=== PATIENT | male | born 1955 | race Caucasian/White ===

== ENCOUNTER 2019-07-18 14:28 | Emergency (ER) | payer OTHER ==
--- OUTSIDE RECORDS SUMMARY | 2019-07-18 14:30 | XMS REPORT ---
:1955 [facility] [address] [place] [id number] Care Team Providers Name Role Phone ALFRED AVELAR Unavailable Unavailable Problems This patient has no known problems. Allergies, Adverse Reactions, Alerts This patient has no known allergies or adverse reactions. Medications This patient has no known medications. Results Test Description Test Time Test Comments Text Results Atomic Results Result Comments URINALYSIS W/ MICROSCOPIC 2016-10-01 10:41:00 Test Item Value Reference Range Comments COLOR (BEAKER) (test ryjv=119) Yellow CLARITY (BEAKER) (test lgnl=452) Clear SPECIFIC GRAVITY UA (BEAKER) (test zpik=529) 1.018 1.001-1.035 PH UA (BEAKER) (test dyib=582) 5.5 5.0-8.0 PROTEIN UA (BEAKER) (test fwhl=307) 20 mg/dL Negative GLUCOSE UA (BEAKER) (test vcyp=838) 500 mg/dL Negative KETONES UA (BEAKER) (test qifo=402) Negative Negative BILIRUBIN UA (BEAKER) (test uaiq=049) Negative Negative BLOOD UA (BEAKER) (test fwyl=219) Negative Negative NITRITE UA (BEAKER) (test ttxc=329) Negative Negative LEUKOCYTE ESTERASE UA (BEAKER) (test cfle=836) Negative Negative UROBILINOGEN UA (BEAKER) (test lkfp=853) 2.0 mg/dL 0.2-1.0 RBC UA (BEAKER) (test xswr=181) 1 /HPF WBC UA (BEAKER) (test xrmr=609) 2 /HPF MUCUS (BEAKER) (test oebr=3487) Few HYALINE CASTS (BEAKER) (test ngjh=328) 3 /LPF SOURCE(BEAKER) (test plqj=1466) Urine, Clean Catch POCT-GLUCOSE [id number] 21:27:00 Test Item Value Reference Range Comments POC-GLUCOSE METER (BEAKER) 249 mg/dL 70-110 TESTED AT [address] (test bxcv=7575) [facility] [id number] POCT-GLUCOSE [id number] 12:28:00 Test Item Value Reference Range Comments POC-GLUCOSE METER (BEAKER) 263 mg/dL 70-110 TESTED AT [address] (test zeaw=0192) [place] [id number] POCT-GLUCOSE [id number] 08:05:00 Test Item Value Reference Range Comments POC-GLUCOSE METER (BEAKER) 123 mg/dL 70-110 TESTED AT [address] (test mowr=1031) [place] [id number] CBC (HEMOGRAM ONLY)2016-09-30 07:32:00 Test Item Value Reference Range Comments WHITE BLOOD CELL COUNT (BEAKER) (test ruxq=527) 7.5 K/ L 4.0-10.0 RED BLOOD CELL COUNT (BEAKER) (test qihv=763) 3.99 M/ L 4.20-5.80 HEMOGLOBIN (BEAKER) (test bxef=317) 12.7 GM/DL 13.0-16.8 HEMATOCRIT (BEAKER) (test hewa=082) 36.7 % 40.0-50.0 MEAN CORPUSCULAR VOLUME (BEAKER) (test rwfj=111) 92.1 fL 82.0-98.0 MEAN CORPUSCULAR HEMOGLOBIN (BEAKER) (test 31.8 pg 27.0-33.0 xszm=564) MEAN CORPUSCULAR HEMOGLOBIN CONC (BEAKER) (test 34.5 GM/DL 32.0-36.0 vyjb=607) RED CELL DISTRIBUTION WIDTH (BEAKER) (test 12.3 % 10.3-14.2 ksda=397) PLATELET COUNT (BEAKER) (test yhua=681) 113 K/CU MM 150-430 MEAN PLATELET VOLUME (BEAKER) (test baex=109) 9.1 fL 6.5-10.5 NUCLEATED RED BLOOD CELLS (BEAKER) (test 0 /100 WBC 0-0 myjf=268) 0.00BASIC METABOLIC [id number] 05:58:00 Test Item Value Reference Range Comments SODIUM (BEAKER) (test 140 meq/L 136-145 bjxi=547) POTASSIUM (BEAKER) (test 4.1 meq/L 3.5-5.1 tigo=720) CHLORIDE (BEAKER) (test 105 meq/L 98-107 aagt=174) CO2 (BEAKER) (test 28 meq/L 22-29 gkqz=923) BLOOD UREA NITROGEN 14 mg/dL 7-21 (BEAKER) (test vfbw=987) CREATININE (BEAKER) (test 0.86 mg/dL 0.57-1.25 obrj=668) GLUCOSE RANDOM (BEAKER) 96 mg/dL 70-105 (test iqlt=047) CALCIUM (BEAKER) (test 8.9 mg/dL 8.4-10.2 oyiv=367) EGFR (BEAKER) (test 90 mL/min/1.73 sq m ESTIMATED GFR IS NOT bdhh=2493) ACCURATE CREATININE CLEARANCE IN PREDICTING GLOMERULAR FILTRATION RATE. ESTIMATED GFR IS NOT APPLICABLE FOR DIALYSIS PATIENTS. POCT-GLUCOSE [id number] 21:30:00 Test Item Value Reference Range Comments POC-GLUCOSE METER (BEAKER) 254 mg/dL 70-110 TESTED AT [address] (test rkee=8518) [facility] [address] POCT-GLUCOSE [id number] 16:53:00 Test Item Value Reference Range Comments POC-GLUCOSE METER (BEAKER) 254 mg/dL 70-110 TESTED AT [address] (test iyxt=1707) [facility] [address] POCT-GLUCOSE [id number] 12:30:00 Test Item Value Reference Range Comments POC-GLUCOSE METER (BEAKER) 323 mg/dL 70-110 Notified RADHA KRAMER/TESTED AT [facility] (test nwoz=1979) [address] [place] [address] POCT-GLUCOSE [id number] 11:28:00 Test Item Value Reference Range Comments POC-GLUCOSE METER (BEAKER) 304 mg/dL 70-110 Notified RADHA KRAMER/TESTED AT [facility] (test arys=2329) [address] [place] [address] POCT-GLUCOSE [id number] 06:16:00 Test Item Value Reference Range Comments POC-GLUCOSE METER (BEAKER) 222 mg/dL 70-110 TESTED AT [address] (test udmf=8743) [facility] [address]
[2019-07-18] MEDS ORDERED: TETANUS & DIPHTHERIA TOX,ADULT 0.5 ML VIAL ONE (15:29)
[2019-07-18] MEDS ORDERED: HYDROCODONE/APAP 7.5/325 MG TAB ONE (16:15)
[2019-07-18] MEDS ORDERED: LIDOCAINE 1% MPF 30 ML VIAL ONE (16:16)
--- NOTE | 2019-07-18 16:30 | RAD REPORT ---
EXAM DESCRIPTION: RAD - Pelvis - 07/18/2019 3:41 pm CLINICAL HISTORY: Pelvic pain status post injury FINDINGS: The bones are osteoporotic. The lateral aspect of the iliac crest bilaterally are not entirely included in the field of view and are not evaluated No fracture or dislocation is visualized
--- NOTE | 2019-07-18 16:31 | RAD REPORT ---
EXAM DESCRIPTION: RAD - Femur Left - 07/18/2019 3:46 pm CLINICAL HISTORY: Left leg pain FINDINGS: The bones are osteoporotic. No fracture is seen. If the patient continues to have symptoms to suggest an occult fracture then MRI would be recommended
--- NOTE | 2019-07-18 16:34 | RAD REPORT ---
EXAM DESCRIPTION: RAD -Hand Left 3 View - 07/18/2019 3:41 pm CLINICAL HISTORY: Left hand pain status post injury FINDINGS: No fracture or dislocation is seen. The bones are osteoporotic. A bandage overlies the palm
--- NOTE | 2019-07-18 16:35 | RAD REPORT ---
EXAM DESCRIPTION: RAD - Foot Left 3 View - 07/18/2019 3:40 pm CLINICAL HISTORY: Left Foot pain status post fall FINDINGS: A mildly displaced spiral fracture involves the fifth metatarsal. No dislocation. Osteoporosis
--- NOTE | 2019-07-18 16:55 | ER ---
Nurse's Notes [facility] Name: Torrey Ratliff Age: 64 yrs Sex: Male : 1955 Arrival Date: 07/18/2019 Time: 14:31 Bed 30 Private MD: Diagnosis: Fall on and from ladder;Laceration without foreign body of left hand;Fracture of fifth metatarsal bone-left Presentation: 07/18 15:04 Presenting complaint: Patient states: fell from the ladder approximately 5ft high, rv landed on his left side. takes Aspirin daily. complains of left leg pain, left foot. and has a laceration on the left hand. Care prior to arrival: None. Mechanism of Injury: Fall from ladder approximately 5 feet. Trauma event details: Injury occurred in the [facility], Injury occurred: at home. Injury occurred: 1899. 15:04 Acuity: MALINA 3 rv 15:04 Method Of Arrival: Ambulatory rv 15:13 Transition of care: patient was not received from another setting of care. Onset of rv symptoms was July 18, 2019 at 14:30. Risk Assessment: Do you want to hurt yourself or someone else? Patient reports no desire to harm self or others. Initial Sepsis Screen: Does the patient meet any 2 criteria? No. Patient's initial sepsis screen is negative. Does the patient have a suspected source of infection? No. Patient's initial sepsis screen is negative. Triage Assessment: 18:00 General: Behavior is calm, cooperative. rv Historical: - Allergies: 15:11 PENICILLINS; rv 15:11 Toradol; rv 15:11 Phenergan; rv - Home Meds: 15:11 aspirin 81 mg Oral chew [Active]; humalog insulin pump [Active]; atorvastatin 20 mg rv oral tab 1 tab once daily [Active]; levothyroxine 175 mcg tab 1 tab once daily [Active]; cetirizine 10 mg oral tab 1 tab once daily [Active]; Nexium 40 mg Oral cpDR 1 cap once daily [Active]; testosterone buccal buccal [Active]; - PMHx: 15:11 Diabetes - NIDDM; cerebral hemorrhage during childhood; Thyroid problem; rv - PSHx: 15:11 Cholecystectomy; Appendectomy; Tonsillectomy; rv - Immunization history:: Adult Immunizations up to date. - Social history:: Smoking status: Patient/guardian denies using tobacco. - Immunization history: Last tetanus immunization: unknown. - Ebola Screening: : No symptoms or risks identified at this time. Screenin:12 Abuse screen: Denies threats or abuse. Denies injuries from another. Nutritional rv screening: No deficits noted. Tuberculosis screening: No symptoms or risk factors identified. Fall Risk None identified. Primary Survey: 15:12 NO uncontrolled hemorrhage observed. Breathing/Chest: Respiratory pattern: regular. rv Circulation: Cardiac rhythm: sinus rhythm. Disability Alert. Exposure/Environment: All clothing and personal items were removed. Forensic evidence collection is not deemed to be indicated at this time. Items placed in patient belonging bag. There is no evidence of uncontrolled external bleeding. No obvious injuries are noted at this time. A warming method has been applied: A warm blanket has been provided to the patient. 18:01 Reassessment Breathing/Chest Respiratory pattern Regular. rv Assessment: 15:11 General: Appears in no apparent distress. Pain: Complains of pain in left hand and left rv leg. Neuro: Level of Consciousness is awake, alert, obeys commands, Oriented to person, place, time, situation, Denies headache. Cardiovascular: Patient's skin is warm and dry. Respiratory: Airway is patent. Derm: Skin is intact. Injury Description: Laceration sustained to left hand. Vital Signs: 15:05 BP 120 / 68; Pulse 64; Resp 17; Temp 98; Pulse Ox 100% on R/A; Weight 88.45 kg; Height rv 6 ft. 3 in. (190.50 cm); 16:00 BP 118 / 66; Pulse 61; Resp 15; Pulse Ox 98% ; rv 17:00 BP 121 / 68; Pulse 71; Resp 17; Pulse Ox 100% on R/A; rv 18:00 BP 124 / 71; Pulse 66; Resp 16; Pulse Ox 100% on R/A; rv 15:05 Body Mass Index 24.37 (88.45 kg, 190.50 cm) rv Kylee Coma Score: 15:05 Eye Response: spontaneous(4). Verbal Response: oriented(5). Motor Response: obeys rv commands(6). Total: 15. Trauma Score (Adult): 15:05 Eye Response: spontaneous(1); Verbal Response: oriented(1); Motor Response: obeys rv commands(2); Systolic BP: > 89 mm Hg(4); Respiratory Rate: 10 to 29 per min(4); Kirkman Score: 15; Trauma Score: 12 ED Course: 14:31 Patient arrived in ED. as 14:56 Al Mendiola PA is PHCP. cp 14:56 Al Egan MD is Attending Physician. cp 15:04 Hal Stephens RN is Primary Nurse. rv 15:05 Triage completed. rv 15:13 Patient has correct armband on for positive identification. Placed in gown. Bed in low rv position. Call light in reach. Pulse ox on. NIBP on. 15:39 Patient maintains SpO2 saturation greater than 95% on room air. Wound care: to rv laceration located on left hand. Wound care: was cleaned with Hibiclens, irrigated with normal saline, dressed with 4X4s, Patient tolerated well. Thermoregulation: warm blanket given to patient. 15:41 XRAY Foot LEFT 3 View In Process Unspecified. EDMS 15:41 XRAY Femur LEFT In Process Unspecified. EDMS 15:41 XRAY Hand LEFT 3 View In Process Unspecified. EDMS 15:41 XRAY Pelvis In Process Unspecified. EDMS 16:53 Sathya Jones MD is Referral Physician. cp 18:00 No provider procedures requiring assistance completed. Patient did not have IV access rv during this emergency room visit. 18:02 Primary Nurse role handed off by Hal Stephens, RADHA rv 18:02 Splint/sling/ice applied as appropriate. rv Administered Medications: 16:17 Drug: Tetanus-Diphtheria Toxoid Adult 0.5 ml {Asbestos Abatement Technician: Rank By Search. Exp: rv 07/24/2021. Lot #: [id number]. } Route: IM; Site: right deltoid; 17:59 Follow up: Response: No adverse reaction rv 16:17 Drug: Hydrocodone-Acetaminophen (7.5 mg-500 mg) 1 tabs {Note: RASS 0.} Route: PO; rv 17:59 Follow up: Response: No adverse reaction; Marked relief of symptoms; Pain is decreased; rv Medication administered at discharge. Outcome: 16:55 Discharge ordered by . cp 18:01 Discharged to home via wheelchair, with crutches. rv 18:01 Condition: improved 18:01 Discharge instructions given to patient, family, Instructed on discharge instructions, follow up and referral plans. medication usage, Demonstrated understanding of instructions, follow-up care, medications, wound care, crutch walking, splint care. 18:01 Prescriptions given X 1. rv 18:02 Patient left the ED. rv 18:24 Patient left the ED. Signatures: Dispatcher [employer] Cydney Booker Shelby, RN RN Al Mendiola PA PA cp Vicente, Ronaldo RN RN rv
--- NOTE | 2019-07-18 16:55 | EDPHYS ---
Physician Documentation [facility] Name: Torrey Ratliff Age: 64 yrs Sex: Male : 1955 Arrival Date: 07/18/2019 Time: 14:31 Bed 30 Private MD: ED Physician Al Egan HPI: 07/18 15:10 This 64 yrs old Male presents to ER via Ambulatory with complaints of Fall cp Injury - 5 ft, Laceration To Hand. 15:10 Details of fall: The patient fell from a height, from a ladder, approximately 5 feet, cp and struck a grass-covered surface. Onset: The symptoms/episode began/occurred just prior to arrival. Associated injuries: The patient sustained left upper leg and left hand and left foot. Historical: - Allergies: 15:11 PENICILLINS; rv 15:11 Toradol; rv 15:11 Phenergan; rv - Home Meds: 15:11 aspirin 81 mg Oral chew [Active]; humalog insulin pump [Active]; atorvastatin 20 mg rv oral tab 1 tab once daily [Active]; levothyroxine 175 mcg tab 1 tab once daily [Active]; cetirizine 10 mg oral tab 1 tab once daily [Active]; Nexium 40 mg Oral cpDR 1 cap once daily [Active]; testosterone buccal buccal [Active]; - PMHx: 15:11 Diabetes - NIDDM; cerebral hemorrhage during childhood; Thyroid problem; rv - PSHx: 15:11 Cholecystectomy; Appendectomy; Tonsillectomy; rv - Immunization history:: Adult Immunizations up to date. - Social history:: Smoking status: Patient/guardian denies using tobacco. - Immunization history: Last tetanus immunization: unknown. - Ebola Screening: : No symptoms or risks identified at this time. ROS: 15:15 Constitutional: Negative for body aches, chills, fever, poor PO intake. cp 15:15 Neck: Negative for pain with movement, pain at rest, stiffness. cp 15:15 Cardiovascular: Negative for chest pain, palpitations. 15:15 Respiratory: Negative for cough, shortness of breath, wheezing. 15:15 Abdomen/GI: Negative for abdominal pain, nausea, vomiting, and diarrhea, constipation, black/tarry stool, rectal bleeding. 15:15 Back: Negative for pain at rest, pain with movement, radiated pain. 15:15 MS/extremity: Positive for pain, of the left upper leg and left foot and left hand. 15:15 Skin: Positive for laceration(s), of the left hand. 15:15 Neuro: Negative for altered mental status, headache, loss of consciousness, syncope, near syncope, weakness. 15:15 All other systems are negative. Exam: 15:20 Constitutional: The patient appears in no acute distress, alert, awake, cp non-diaphoretic, non-toxic, well developed, well nourished. 15:20 Head/Face: Normocephalic, atraumatic. cp 15:20 Eyes: Periorbital structures: appear normal, Pupils: equal, round, and reactive to light and accomodation, Extraocular movements: intact throughout, Conjunctiva: normal, no exudate, no injection, Sclera: no appreciated abnormality, Lids and lashes: appear normal, bilaterally. 15:20 ENT: External ear(s): are unremarkable, Ear canal(s): are normal, clear, TM's: dullness, bilaterally, Nose: is normal, Mouth: Lips: moist, Oral mucosa: pink and intact, moist, Posterior pharynx: is normal, airway is patent. 15:20 Neck: C-spine: vertebral tenderness, is not appreciated, crepitus, is not appreciated, ROM/movement: is normal, is supple, without pain, no range of motions limitations, no nuchal rigidity. 15:20 Chest/axilla: Inspection: normal, Palpation: is normal, no crepitus, no tenderness. 15:20 Cardiovascular: Rate: normal, Rhythm: regular. 15:20 Respiratory: the patient does not display signs of respiratory distress, Respirations: normal, no use of accessory muscles, no retractions, no splinting, no tachypnea, labored breathing, is not present, Breath sounds: are clear throughout, no decreased breath sounds, no stridor, no wheezing. 15:20 Abdomen/GI: Inspection: abdomen appears normal, Bowel sounds: active, all quadrants, Palpation: abdomen is soft and non-tender, in all quadrants, voluntary guarding, is not appreciated, involuntary guarding, is not appreciated. 15:20 Back: pain, is absent, vertebral tenderness, is not appreciated. 15:20 Musculoskeletal/extremity: Extremities: grossly normal except: noted in the left upper leg: pain, tenderness, There is no evidence of deformity, noted in the left foot: pain, swelling, tenderness. 15:20 Skin: injury, laceration(s), of the left hand, that can be described as clean, linear, with mild bleeding. 15:20 Neuro: Orientation: to person, place \T\ time. Mentation: is normal, Motor: moves all fours, strength is normal, Sensation: is normal. Vital Signs: 15:05 BP 120 / 68; Pulse 64; Resp 17; Temp 98; Pulse Ox 100% on R/A; Weight 88.45 kg; Height rv 6 ft. 3 in. (190.50 cm); 16:00 BP 118 / 66; Pulse 61; Resp 15; Pulse Ox 98% ; rv 17:00 BP 121 / 68; Pulse 71; Resp 17; Pulse Ox 100% on R/A; rv 18:00 BP 124 / 71; Pulse 66; Resp 16; Pulse Ox 100% on R/A; rv 15:05 Body Mass Index 24.37 (88.45 kg, 190.50 cm) rv Tangent Coma Score: 15:05 Eye Response: spontaneous(4). Verbal Response: oriented(5). Motor Response: obeys rv commands(6). Total: 15. Trauma Score (Adult): 15:05 Eye Response: spontaneous(1); Verbal Response: oriented(1); Motor Response: obeys rv commands(2); Systolic BP: > 89 mm Hg(4); Respiratory Rate: 10 to 29 per min(4); Kylee Score: 15; Trauma Score: 12 Procedures: 18:20 Splinting: Splint applied to left foot using Orthoglass splint, posterior lower leg. cp applied by tech. Examined by me, post splint application: neurovascular intact, Patient tolerated well. Laceration: 16:49 Wound Repair of 5cm ( 2.0in ) subcutaneous laceration to rasheed side of left hand and cp middle phalanx of index finger. Irregularly shaped.. Distal neuro/vascular/tendon intact. Anesthesia: Wound infiltrated with 8 mls of 1% lidocaine. Wound prep: Wound irrigation by nurse. Skin closed with 7 4-0 Prolene using interrupted sutures and sterile technique. Dressed with Neosporin, 4x4's. Patient tolerated well. MDM: 14:56 Patient medically screened. cp 16:51 Data reviewed: vital signs, nurses notes, radiologic studies, plain films. Test cp interpretation: by ED physician or midlevel provider: plain radiologic studies, xrays of left foot show spiral fracture left fifth metatarsal, xrays of left femur negative for fracture and xrays of left hand negative for fracture. 16:53 Differential diagnosis: closed head injury, fracture, laceration, multiple trauma. cp 16:55 Counseling: I had a detailed discussion with the patient and/or guardian regarding: the cp historical points, exam findings, and any diagnostic results supporting the discharge/admit diagnosis, radiology results, the need for outpatient follow up, for definitive care, a orthopedic surgeon, to return to the emergency department if symptoms worsen or persist or if there are any questions or concerns that arise at home. 16:55 Response to treatment: the patient's symptoms have markedly improved after treatment, cp and as a result, I will discharge patient. 07/18 15:06 Order name: XRAY Foot LEFT 3 View; Complete Time: 16:47 cp 07/18 16:47 Interpretation: Reviewed report. 07/18 15:06 Order name: XRAY Femur LEFT; Complete Time: 16:47 cp 07/18 16:47 Interpretation: Reviewed. 07/18 15:06 Order name: XRAY Hand LEFT 3 View; Complete Time: 16:47 cp 07/18 16:47 Interpretation: Report reviewed. cp 07/18 15:06 Order name: XRAY Pelvis; Complete Time: 16:47 cp 07/18 16:47 Interpretation: Report reviewed. 07/18 15:53 Order name: Dressing - Wound; Complete Time: 16:18 cp 07/18 15:53 Order name: Gloves, Sterile; Complete Time: 16:18 cp 07/18 15:53 Order name: Setup Suture Tray; Complete Time: 16:18 cp 07/18 16:11 Order name: Wound Care; Complete Time: 16:17 cp 07/18 16:47 Order name: Wound dressing; Complete Time: 17:59 cp 07/18 16:47 Order name: Splint Leg: Short Leg: posterior; Complete Time: 17:58 cp 07/18 16:47 Order name: Crutches; Complete Time: 17:58 cp Administered Medications: 16:17 Drug: Tetanus-Diphtheria Toxoid Adult 0.5 ml {Supervisor Final: [employer]. Exp: rv 07/24/2021. Lot #: [id number]. } Route: IM; Site: right deltoid; 17:59 Follow up: Response: No adverse reaction rv 16:17 Drug: Hydrocodone-Acetaminophen (7.5 mg-500 mg) 1 tabs {Note: RASS 0.} Route: PO; rv 17:59 Follow up: Response: No adverse reaction; Marked relief of symptoms; Pain is decreased; rv Medication administered at discharge. Disposition: 18:40 Chart complete. cp Disposition: 07/18/19 16:55 Discharged to Home. Impression: Fall on and from ladder, Laceration without foreign body of left hand, Fracture of fifth metatarsal bone - left. - Condition is Stable. - Discharge Instructions: Laceration Care, Adult, Metatarsal Fracture. - Prescriptions for Tylenol- Codeine #3 300-30 mg Oral Tablet - take 2 tablets by ORAL route every 6 hours As needed; 20 tablet. - Medication Reconciliation Form, Thank You Letter, Antibiotic Education, Prescription Opioid Use form. - Follow up: Private Physician; When: 7 - 10 days; Reason: Staple/Suture removal. Follow up: Sathya Jones MD; When: 2 - 3 days; Reason: left foot fracture. - Problem is new. - Symptoms have improved. Addendum: 07/21/2019 08:21 Co-signature as Attending Physician, Al Egan MD I agree with the assessment and c holland plan of care. Signatures: Dispatcher [employer] Al Mullins MD MD cha Smirch, Shelby, RN RN Al Wolfe PA PA cp Hal Stephens, RADHA RN rv Corrections: (The following items were deleted from the chart) 07/18 18:02 16:55 07/18/2019 16:55 Discharged to Home. Impression: Fall on and from ladder; rv Laceration without foreign body of left hand; Fracture of fifth metatarsal bone - left. Condition is Stable. Forms are Medication Reconciliation Form, Thank You Letter, Antibiotic Education, Prescription Opioid Use. Follow up: Private Physician; When: 7 - 10 days; Reason: Staple/Suture removal. Follow up: Sathya Jones; When: 2 - 3 days; Reason: left foot fracture. Problem is new. Symptoms have improved. cp 18:24 18:02 07/18/2019 16:55 Discharged to Home. Impression: Fall on and from ladder; ss Laceration without foreign body of left hand; Fracture of fifth metatarsal bone - left. Condition is Stable. Discharge Instructions: Laceration Care, Adult, Metatarsal Fracture. Prescriptions for Tylenol-Codeine #3 300-30 mg Oral Tablet - take 2 tablets by ORAL route every 6 hours As needed; 20 tablet. and Forms are Medication Reconciliation Form, Thank You Letter, Antibiotic Education, Prescription Opioid Use. Follow up: Private Physician; When: 7 - 10 days; Reason: Staple/Suture removal. Follow up: Sathya Jones; When: 2 - 3 days; Reason: left foot fracture. Problem is new. Symptoms have improved. rv
[2019-07-18 18:45] VITALS: TEMP 98
[2019-07-18 18:47] VITALS: O2SAT 100
[2019-07-18 18:48] VITALS: BP 124/71
== END 2019-07-18 18:24 | disposition home or self-care (01) ==
LOC: ER 14:28
PROC: 0JQK0ZZ Repair Left Hand Subcutaneous Tissue and Fascia, Open Approach (ICD-10-PCS; principal; 2019-07-18)
PROC: 2W3RX1Z Immobilization of Left Lower Leg using Splint (ICD-10-PCS; 2019-07-18)
DX: S61.217A Laceration without foreign body of left little finger without damage to nail, initial encounter (principal); S92.352A Displaced fracture of fifth metatarsal bone, left foot, initial encounter for closed fracture; W11.XXXA Fall on and from ladder, initial encounter; Y93.9 Activity, unspecified; Y92.9 Unspecified place or not applicable; Z88.0 Allergy status to penicillin; E11.9 Type 2 diabetes mellitus without complications; E07.9 Disorder of thyroid, unspecified
CPT/HCPCS: 72170; 90471; 90714; 99285

== ENCOUNTER → 2024-01-02 | Day surgery (SDC) | payer OTHER ==
[2024-01-01 16:07] LABS: Absolute Eosinophils 0.2 K/uL (0-0.5); Absolute Lymphocytes (CBC) 1.2 K/uL (0.7-4.9); Absolute Monocytes 0.3 K/uL (0.1-1.3); Basophils % 1.2 % (0-1.3); Eosinophils % 5.6 % (0-4.4); Hematocrit 38.5 % (39.6-49.0); Hemoglobin 12.9 g/dL (13.6-17.9); Lymphocytes % 31.8 % (15.3-44.8); MCH 29.9 pg (27.0-35.0); MCHC 33.6 g/dL (32.0-36.0); MCV 88.9 fL (80-100); MPV 9.4 fL (7.6-11.3); Monocytes % 8.5 % (3.3-12.3); Neutrophils % 52.9 % (41.7-73.7); Platelets 127 thou/uL (152-406); RBC Red Blood Cell Count 4.32 M/uL (4.33-5.43); Red Cell Distribution Width 14.4 % (12.1-15.2)
[2024-01-01 16:20] LABS: Anion Gap 5.7 mEq/L (5.0-15.0); Potassium 3.7 mEq/L (3.5-5.1)
[~2024-01-02] MED LIST: LIDOCAINE 1% MPF 5 ML VIAL ONE; propofoL 200 MG/20 ML VIAL IV ONE
[2024-01-02] MEDS: NA CHLORIDE 0.9% 1,000 ML ONE (07:20)
[2024-01-02 12:23] VITALS: BP 118/63; TEMP 97.3; O2SAT 94
--- NOTE | 2024-01-02 13:51 | EKG ---
Test Date: 2024-01-01 Test Time: 14:22:16 Stacker Attendant: PREO MEASUREMENT RESULTS: Intervals: Rate: 55 WV: 148 QRSD: 96 QT: 516 QTc: 493 [place]: P: 20 WV: 148 QRS: 30 T: 100 INTERPRETIVE STATEMENTS: Electronic atrial pacemaker T wave abnormality, consider anterolateral ischemia Prolonged QT Abnormal ECG No previous ECG available for comparison Electronically Signed On 01-02-24 13:48:44 CDT by Philippe Zaldivar
== END ==
LOC: OR 06:55
PROVIDERS: ATTEND Internal Medicine Gastroenterology
PROC: 0DJD8ZZ Inspection of Lower Intestinal Tract, Via Natural or Artificial Opening Endoscopic (ICD-10-PCS; principal; 2024-01-02 08:30)
DX: K92.1 Melena (principal); R14.0 Abdominal distension (gaseous); R10.12 Left upper quadrant pain; K59.00 Constipation, unspecified; K64.8 Other hemorrhoids; Z86.010 Personal history of colon polyps
CPT/HCPCS: 93005; 85025; 80048; 36415; 45378; J2704 ×2; J2001; J7030